=== PATIENT | female | born 1970 | race Caucasian/White ===

== ENCOUNTER → 2017-09-26 | Outpatient (CLI) | payer OTHER ==
--- NOTE | 2017-09-26 10:42 | RAD ---
Gastric emptying study. 09/26/2017 Indication: Epigastric pain x6 months. Worse in the morning. Discussion: Imaging of the abdomen was performed for approximately 1 hour following the oral administration of 2.1 mCi of technetium 99m labeled sulfur colloid in a solid meal. Only minimal radiotracer is noted distal to the stomach on cine images. Gastric imaging half-time is estimated 158.5 minutes (normal is 60 minutes +/- 30 minutes). Impression: Delayed gastric emptying.
== END | disposition home or self-care (01) ==
LOC: NM 07:40
PROVIDERS: ATTEND Internal Medicine Gastroenterology
DX: K30 Functional dyspepsia (principal)
CPT/HCPCS: 78264

== ENCOUNTER → 2020-02-15 | Outpatient (CLI) | payer OTHER ==
--- NOTE | 2020-02-15 17:50 | RAD ---
Examination: 1. Bilateral digital diagnostic mammogram. 2. Limited right breast ultrasound. INDICATION: Right breast mass seen on recent CT recommended for diagnostic breast imaging. COMPARISON: Right breast ultrasound and bilateral mammogram of 01/03/2012, bilateral screening mammogram of 05/06/2019. TECHNIQUE: Digital bilateral mammogram was performed in the CC and MLO projections with 2-D and 3-D technique and reviewed with computer-aided detection. Thereafter, targeted ultrasound of the right breast was performed. FINDINGS: Scattered fibroglandular densities. No developing mass, suspicious calcification or architectural distortion. There is a 1.3 cm oval isodense circumscribed mass with a biopsy marker at its deep margin present in the right breast, consistent with a previously biopsied mass. The biopsy marker is new from 2011. Targeted ultrasound of the right breast confirms the presence of an oval circumscribed parallel orientation mass in the 11:00 position 5 cm from the nipple with a linear echogenic structure at its margin consistent with a biopsy marker this measures 1.4 cm on ultrasound and correlates with the mammographic finding previously noted. IMPRESSION: Benign findings. No evidence of malignancy. BI-RADS Category 2 Benign Recommend return to routine screening which will next doing one year. BI-RADS 2 -- benign findings
== END | disposition home or self-care (01) ==
LOC: MAMMO 12:49
PROVIDERS: ATTEND Nurse Practitioner Family
DX: N63.11 Unspecified lump in the right breast, upper outer quadrant (principal)
CPT/HCPCS: 76641; 77066; G0279; 77062